=== PATIENT | male | born 1965 | race American Indian/Alaskan Native ===

== ENCOUNTER 2019-04-17 03:40 | Emergency (ER) | payer SELFPAY ==
--- NOTE | 2019-04-17 04:54 | XRay Report ---
CHEST 1 VIEW INDICATION / CLINICAL INFORMATION: cough, sob. COMPARISON: None available. FINDINGS: SUPPORT DEVICES: None. HEART / MEDIASTINUM: No significant abnormality. LUNGS / PLEURA: There is mild as well as interstitial disease. There is mild hyperinflation of the allen ngs No pneumothorax. ADDITIONAL FINDINGS: No significant additional findings. IMPRESSION: 1. There is mild hyperinflation the lungs. There is mild basilar interstitial disease. Signer Name: Jacinto Sanders MD Signed: 04/17/2019 4:49 AM Workstation Name: [id number]
--- NOTE | 2019-04-17 06:06 | Emergency Department Report ---
ED Shortness of Breath HPI - General Chief Complaint: Dyspnea/Respdistress Stated Complaint: ASTHMA Time Seen by Provider: 04/17/19 06:00 Source: patient, EMS Mode of arrival: Stretcher Limitations: Physical Limitation - History of Present Illness Initial Comments: Patient is 54-year-old male with history of COPD. Patient presented to the ER complaining of shortness of breath for the last 3 days associated with cough, productive with greenish sputum. Patient also stated that he has been wheezing a lot recently. Patient denied any fever or chills. No chest pain. MD Complaint: shortness of breath, cough -: days(s) Known History Of: COPD Context: recent URI Associated Symptoms: denies other symptoms - Related Data Allergies Allergy/AdvReac Type Severity Reaction Status Date / Time No Known Allergies Allergy Unverified 04/17/19 04:07 ED Review of Systems ROS: Stated complaint: ASTHMA Other details as noted in HPI Comment: All other systems reviewed and negative Constitutional: denies: chills Respiratory: cough, shortness of breath, SOB with exertion, SOB at rest, wheezing. denies: orthopnea, stridor Cardiovascular: denies: chest pain, palpitations Gastrointestinal: denies: abdominal pain, nausea, vomiting ED Past Medical Hx - Past Medical History Previous Medical History?: Yes Hx COPD: Yes - Surgical History Past Surgical History?: No - Social History Smoking Status: Current Every Day Smoker Substance Use Type: None ED Physical Exam - General Limitations: Physical Limitation General appearance: alert, in no apparent distress - Head Head exam: Present: atraumatic, normocephalic, normal inspection - Eye Eye exam: Present: normal appearance, PERRL - ENT ENT exam: Present: normal exam, normal orophraynx, mucous membranes moist - Neck Neck exam: Present: normal inspection, full ROM. Absent: tenderness, meningismus, lymphadenopathy, thyromegaly - Respiratory Respiratory exam: Present: wheezes. Absent: respiratory distress, rales, rhonchi, stridor, chest wall tenderness, accessory muscle use, decreased breath sounds, prolonged expiratory - Cardiovascular Cardiovascular Exam: Present: regular rate, normal rhythm, normal heart sounds - GI/Abdominal GI/Abdominal exam: Present: soft, normal bowel sounds. Absent: distended, t enderness, guarding, rebound, rigid, organomegaly, mass, bruit, pulsatile mass, hernia - Extremities Exam Extremities exam: Present: normal inspection, full ROM, normal capillary refill. Absent: pedal edema, calf tenderness - Back Exam Back exam: Present: normal inspection, full ROM. Absent: CVA tenderness (R), CVA tenderness (L), muscle spasm, paraspinal tenderness, vertebral tenderness - Neurological Exam Neurological exam: Present: alert, oriented X3, CN II-XII intact, normal gait, reflexes normal - Psychiatric Psychiatric exam: Present: normal mood - Skin Skin exam: Present: warm, intact, normal color ED Course Vital Signs 04/17/19 04/17/19 04/17/19 04:00 04:04 05:00 Temperature 98.2 F Pulse Rate 90 84 79 Respiratory 20 16 22 Rate Blood Pressure 141/83 141/83 141/83 Blood Pressure 141/83 [Left] O2 Sat by Pulse 93 98 93 Oximetry ED Medical Decision Making - Radiology Data Radiology results: report reviewed - Medical Decision Making Patient is 54-year-old male with history of COPD. Patient presented to the ER complaining of shortness of breath for the last 3 days associated with cough, productive with greenish sputum. Patient also stated that he has been wheezing a lot recently. Patient denied any fever or chills. No chest pain. Patient received albuterol, Atrovent and Solu-Medrol by EMS. Patient stated that he is feeling much better. Chest x-ray is unremarkable. The patient advised to follow-up with his primary care physician the next 2-3 days and to return to the ER if symptoms are not improved. Critical care attestation.: If time is entered above; I have spent that time in minutes in the direct care of this critically ill patient, excluding procedure time. ED Disposition Clinical Impression: COPD exacerbation Disposition: DC-01 TO HOME OR SELFCARE Is pt being admited?: No Condition: Stable Instructions: Chronic Obstructive Pulmonary Disease (ED) Referrals: [facility] [Provider Group] - 3-5 Days
[2019-04-17] MEDS ORDERED: PROVENTIL IH ONE (06:19)
[2019-04-17] MEDS ORDERED: ATROVENT IH ONE (06:19)
[2019-04-17 08:50] VITALS: BP 116/73
== END 2019-04-17 08:49 | disposition home or self-care (01) ==
LOC: ED 03:40
DX: J44.9 Chronic obstructive pulmonary disease, unspecified (principal)
CPT/HCPCS: 71045; 94644